=== PATIENT | female | born 1980 | race Caucasian/White ===

== ENCOUNTER 2020-06-11 23:18 | Inpatient (IN) ==
[~2020-06-11 23:18] MED LIST: Famotidine 20 MG/2 ML VIAL IVP ONE; Metoclopramide 10 MG/2 ML VIAL IVP ONE; Ringers Solution, Lactated 1,000 ML ONE
[2020-06-11] MEDS ORDERED: Naloxone 0.4 MG/ML INJ IVP PRN (23:19)
[2020-06-11] MEDS ORDERED: Famotidine 20 MG/2 ML VIAL IVP PRN (23:19)
[2020-06-11] MEDS ORDERED: Metoclopramide 10 MG/2 ML VIAL IVP PRN (23:19)
[2020-06-11] MEDS ORDERED: Dexamethasone 4 MG/ML VIAL ONE (23:20)
[2020-06-11] MEDS ORDERED: Ondansetron 4 MG/2 ML VIAL ONE (23:20)
[2020-06-11] MEDS ORDERED: *HR* Succinylcholine 200 MG/10 ML VIAL IVP ONE (23:23)
[2020-06-11] MEDS ORDERED: EPHEDrine 50 MG/ML VIAL ONE (23:25)
[2020-06-11] MEDS ORDERED: Ringers Solution, Lactated 1,000 ML IVC SCH (23:30)
[2020-06-11] MEDS ORDERED: *HR* Oxytocin 10 UNIT/ML VIAL IM ONE (23:30)
[2020-06-11 23:38] LABS: Basophils % 0.2 %; Eosinophils # 0.1 K/mcL (0.0-0.6); Eosinophils % 0.7 %; Hematocrit 36.3 % (35.3-44.9); Hemoglobin 11.8 g/dL (11.5-15.4); Immature Granulocytes % 0.5 % (0-4); Lymphocytes # 3.2 K/mcL (0.6-4.6); Lymphocytes % 19.2 %; Mean Corpuscular HGB Conc 32.5 g/dL (31.6-35.5); Mean Corpuscular Hemoglobin 28.8 pg (28.0-33.3); Mean Corpuscular Volume 88.5 fL (83.0-100.0); Mean Platelet Volume 11.2 fL (9.4-12.4); Monocytes # 0.9 K/mcL (0.0-1.3); Monocytes % 5.4 %; Neutrophils # 12.4 K/mcL (1.6-8.9); Platelet Count 251 K/mcL (140-400); Red Cell Distribution Width 13.3 % (11.5-14.5); White Blood Count 16.7 K/mcL (4.3-11.1)
[2020-06-11] MEDS ORDERED: Ringers Solution, Lactated 1,000 ML ONE (23:40)
[2020-06-11] MEDS ORDERED: *HR* FentaNYL (PF) 100 MCG/2 ML VIAL ONE (23:50)
[2020-06-11 23:55] LABS: Amphetamine Screen,Urine Negative ng/mL (Cutoff=1000); Barbiturate Screen,Urine Negative ng/mL (Cutoff=200); Benzodiazepines Screen,Urine Negative ng/mL (Cutoff=200); Cannabinoid Screen,Urine Positive ng/mL (Cutoff = 50); Cocaine Screen,Urine Negative ng/mL (Cutoff= 300); Opiate Screen,Urine Negative ng/mL (Cutoff=300); Phencyclidine Screen,Urine Negative ng/mL (Cutoff=25)
[2020-06-11] MEDS ORDERED: *HR* HYDROMORPHONE 2 MG/ML VIAL ONE (23:56)
[2020-06-11] MEDS ORDERED: Acetaminophen IV 1,000 MG/100 ML INFUS..BTL ONE (23:57)
[2020-06-12] MEDS ORDERED: *HR* HYDROmorphone PF 0.5 MG/0.5 ML SYRINGE IVP PRN (00:07)
[2020-06-12] MEDS ORDERED: Ondansetron 4 MG/2 ML VIAL IVP PRN ×2 (00:07→03:16)
[2020-06-12] MEDS ORDERED: Ringers Solution, Lactated 1,000 ML ONE (00:20)
[2020-06-12] MEDS ORDERED: *HR* Oxytocin 10 UNIT/ML VIAL IM ONE (00:20)
[2020-06-12] MEDS: *HR* Labetalol 20 MG/4 ML SYRINGE IVP PRN ×4 (01:12→02:24)
[2020-06-12 02:14] LABS: Alanine Aminotransferase 7 Units/L (7-52); Aspartate Amino Transferase 8 Units/L (13-39); Lactate Dehydrogenase 139 Units/L (140-271); Uric Acid 5.5 mg/dL (2.3-7.6); eGFR For African Americans > 60 (> 60); eGFR For Non-African Americans > 60 (> 60)
[2020-06-12] MEDS ORDERED: Naloxone 0.4 MG/ML INJ IVP PRN (03:16)
[2020-06-12] MEDS ORDERED: Ibuprofen 600 MG TABLET PO PRN (03:16)
[2020-06-12] MEDS ORDERED: Oxytocin 20 units/ LR 1000 mL 20 UNIT/1,000 ML BAG IVC SCH (03:16)
[2020-06-12] MEDS ORDERED: Lidocaine/EPI 1:100k 1% 30 ML VIAL INFILT ONE (03:16)
[2020-06-12] MEDS ORDERED: Sennosides 8.6 MG TABLET PO PRN (03:16)
[2020-06-12] MEDS ORDERED: Ringers Solution, Lactated 1,000 ML IVC SCH (03:16)
[2020-06-12] MEDS ORDERED: Metoclopramide 10 MG/2 ML VIAL IVP PRN (03:16)
[2020-06-12] MEDS ORDERED: Measles/Mumps/Rubella Vacc 0.5 ML VIAL SQ ONE (03:16)
[2020-06-12] MEDS ORDERED: Scopolamine Patch 1.5 MG PATCH.TD72 TD ONE (04:01)
[2020-06-12] MEDS: *HR* HYDROmorphone 20 MG/20 ML PCA IVC PRN ×2 (04:38→09:39)
[2020-06-12] MEDS ORDERED: *HR* HYDROmorphone 2 MG/ML SYRINGE IVP ONE (04:45)
[2020-06-12 05:45] LABS: Basophils % 0.1 %; Hematocrit 35.6 % (35.3-44.9); Hemoglobin 11.3 g/dL (11.5-15.4); Immature Granulocytes % 0.6 % (0-4); Lymphocytes # 1.1 K/mcL (0.6-4.6); Lymphocytes % 4.7 %; Mean Corpuscular HGB Conc 31.7 g/dL (31.6-35.5); Mean Corpuscular Hemoglobin 28.4 pg (28.0-33.3); Mean Corpuscular Volume 89.4 fL (83.0-100.0); Mean Platelet Volume 11.4 fL (9.4-12.4); Monocytes # 0.8 K/mcL (0.0-1.3); Monocytes % 3.4 %; Neutrophils # 21.8 K/mcL (1.6-8.9); Platelet Count 230 K/mcL (140-400); Red Blood Count 3.98 M/mcL (3.82-4.97); Red Cell Distribution Width 13.2 % (11.5-14.5); Segmented Neutrophils % 91.2 %; White Blood Count 23.9 K/mcL (4.3-11.1)
[2020-06-12] MEDS ORDERED: ceFAZolin 2,000 MG in 0.9 % Sodium Chloride 100 ML IVPB SCH (08:00)
[2020-06-12] MEDS: Simethicone 80 MG TAB.CHEW PO PRN ×3 (08:09→23:47)
[2020-06-12] MEDS: Prenatal Vit/FA 1 EACH TABLET PO SCH (09:46)
[2020-06-12] MEDS: Acetaminophen 325 MG TABLET PO PRN ×2 (09:46→15:51)
[2020-06-12] MEDS: metroNIDAZOLE 500 MG TABLET PO SCH ×3 (09:46→20:08)
[2020-06-12] MEDS: cephALEXin 500 MG CAPSULE PO SCH ×3 (09:47→20:08)
[2020-06-12] MEDS: ARIPiprazole 5 MG TABLET PO SCH (09:48)
[2020-06-12 11:01] LABS: Varicella Zoster IgG Antibody Positive
[2020-06-12 11:02] LABS: Rubella IgG Antibody POSITIVE (POSITIVE)
[2020-06-12] MEDS: *HR* OxyCODONE/APAP 5/325 TABLET PO PRN ×3 (12:08→23:47)
[2020-06-12 13:01] LABS: HIV-1&2 Antibody & p24 Ag Nonreactive (Nonreactive)
[2020-06-13] MEDS: Acetaminophen 325 MG TABLET PO PRN (03:45)
[2020-06-13] MEDS: *HR* OxyCODONE/APAP 5/325 TABLET PO PRN (05:39)
[2020-06-13 07:50] VITALS: BP 127/83
[2020-06-13] MEDS: Prenatal Vit/FA 1 EACH TABLET PO SCH (08:08)
[2020-06-13] MEDS: cephALEXin 500 MG CAPSULE PO SCH (08:08)
[2020-06-13] MEDS: metroNIDAZOLE 500 MG TABLET PO SCH (08:09)
[2020-06-13] MEDS: ARIPiprazole 5 MG TABLET PO SCH (08:09)
[2020-06-13] MEDS: Simethicone 80 MG TAB.CHEW PO PRN (08:10)
== END 2020-06-13 11:32 | disposition home or self-care (01) | DRG 540 ==
LOC: 1NENULAB → 1NENUOBS 06-12 03:17
PROVIDERS: ADMIT Obstetrics & Gynecology; ATTEND Obstetrics & Gynecology